=== PATIENT | female | born 2000 | race Caucasian/White ===

== ENCOUNTER 2020-07-16 03:44 | Emergency (ER) | payer SELFPAY ==
--- NOTE | 2020-07-16 03:50 | NUR ---
Registration reports pt left ER d/t feeling anxious after being told her fiance could not come back.
== END 2020-07-16 03:50 | disposition left against medical advice (07) ==
LOC: ER 03:50
DX: R07.9 Chest pain, unspecified (principal); R11.0 Nausea

== ENCOUNTER 2021-01-02 23:33 | Emergency (ER) | payer SELFPAY ==
[~2021-01-02] VITALS: Ht 165.1 cm; Wt 83.9 kg
[2021-01-02 23:55] VITALS: BP 132/94
[2021-01-03] MEDS ORDERED: ONDANSETRON 4 MG (ZOFRAN) ORAL DISSOLVE TAB PO ONE ×2 (00:15→00:45)
--- NOTE | 2021-01-03 00:16 | ED Lower Extremity ---
General Stated Complaint: SPIDER BITE,ABOVE LEFT ANKLE,FEVER 99.9 Source: patient Exam Limitations: no limitations History of Present Illness Date Seen by Provider: Jan 02, 2021 Time Seen by Provider: 23:50 Initial Comments Patient presents to the emergency room by private conveyance with chief complaint of left lower extremity on the medial ankle having a red splotchy round wound consistent with spider bite. Showed of about 2 days ago. She did not see any insect biting her. She did not think anything of it until today she started becoming nauseated and vomiting. She still has an upset stomach with nausea. She has not seen anybody else for this yet. No other significant medical history. She has not tried any medicines. Allergies and Home Medications Allergies Coded Allergies: No Known Drug Allergies (Unverified , 01/03/21) Home Medications Ondansetron 4 Mg Tab.rapdis, 4 MG PO Q6H PRN for NAUSEA/VOMITING Prescribed by: JARVIS BENSON on 01/03/21 0019 Sulfamethoxazole/Trimethoprim 1 Each Tablet, 1 EACH PO BID Prescribed by: JARVIS BENSON on 01/03/21 0019 Patient Home Medication List Home Medication List Reviewed: Yes Review of Systems Constitutional: No chills, No diaphoresis EENTM: No ear discharge, No ear pain Respiratory: No cough, No short of breath Cardiovascular: No chest pain, No edema Gastrointestinal: No abdominal pain; nausea, vomiting Genitourinary: No discharge, No dysuria : No Control/STD Prophylaxis: None Skin: see HPI All Other Systems Reviewed Negative Unless Noted: Yes Past [id number] Hx Patient Social History Alcohol Use: Denies Use Smoking Status: Never a Smoker Physical Exam Vital Signs Capillary Refill : Height, Weight, BMI Height: '" Weight: lbs. oz. kg; BMI Method: General Appearance: WD/WN, mild distress HEENT: PERRL/EOMI, pharynx normal Neck: full range of motion, normal inspection Cardiovascular: normal peripheral pulses, regular rate, rhythm Respiratory: no respiratory distress, no accessory muscle use Ankles: left ankle soft tissue tenderness (1.5 cm round, nonraised erythematous lesion with 2 punctate wounds healed over in the center and with an ink pen drawing around the demonstrating no recent growth. Left medial malleolus) Progress/Results/Core Measures Results/Orders My Orders Orders - JARVIS BENSON Ondansetron Oral Dissolve Tab (Zofran (01/03/21 00:15) Ondansetron Oral Dissolve Tab (Zofran (01/03/21 00:45) Medications Given in ED Current Medications Medications Dose Ordered Sig/Ting Route Start Time Stop Time Status Last Admin Dose Admin Ondansetron HCl 4 mg ONCE ONCE PO 01/03/21 00:15 01/03/21 00:16 DC 01/03/21 00:13 4 MG Progress Progress Note #1: Time: 00:12 Progress Note Ondansetron for her nausea and Bactrim DS to prevent infection she can start in the morning. Suspicious she could have been bit by a recluse family spider. Progress Note #2: Time: 00:46 Progress Note Nausea is only marginally improves were can give her another ondansetron. If this helps we will let her go home. Bactrim and Zofran. Departure Impression Primary Impression: Accidental spider bite Additional Impression: Nausea & vomiting Qualified Codes: R11.2 - Nausea with vomiting, unspecified Disposition: 01 HOME, SELF-CARE Condition: Stable Departure-Patient Inst. Referrals: NO,LOCAL PHYSICIAN (PCP/Family) Primary Care Physician Patient Instructions: Spider Bites Add. Discharge Instructions: Keep the wound clean with regular soap and water. You may cover it with a Band- Aid or Vaseline if you wish but leaving it open to air is also acceptable. Keep track of its growth. Bactrim 1 tablet twice a day with food for the next week to prevent infection. If your symptoms resolve then you may stop taking the antibiotics. Tylenol and Motrin as necessary for pain. Ondansetron 1-2 tablet under the tongue every 6 hours as necessary for nausea and/or vomiting. Scripts Sulfamethoxazole/Trimethoprim (Bactrim Ds Tablet) 1 Each Tablet 1 EACH PO BID for 7 Days, #14 TAB 0 Refills Prov: JARVIS BENSON 01/03/21 Ondansetron (Ondansetron Odt) 4 Mg Tab.rapdis 4 MG PO Q6H PRN for NAUSEA/VOMITING, #8 TAB 0 Refills Prov: JARVIS BENSON 01/03/21 Work/School Note: Work Release Form Date Seen in the Emergency Department: Jan 03, 2021 Return to Work: Jan 04, 2021 Restrictions: No Restrictions JARVIS BENSON Jan 03, 2021 00:16
[2021-01-03] MEDS ORDERED: ONDA4TAB11 PO (00:19)
[2021-01-03] MEDS ORDERED: SULF1TAB35 PO (00:19)
== END 2021-01-03 00:57 | disposition home or self-care (01) ==
LOC: EDUNIT# 23:33 → ER 23:38
DX: T63.301A Toxic effect of unspecified spider venom, accidental (unintentional), initial encounter (principal); R11.2 Nausea with vomiting, unspecified
CPT/HCPCS: 99283